=== PATIENT | male | born 1975 | race Caucasian/White ===

== ENCOUNTER 2018-08-23 08:28 | Day surgery (SDC) | payer BC, OTHER ==
[~2018-08-23 08:28] MED LIST: Glycopyrrolate 0.2 MG/ML SDV ONE; Lactated Ringers 1,000 ML IV SCH; Lidocaine 2% 5 ML SDV ONE; Midazolam 1 MG/ML 2 ML SDV ONE; Propofol 200 MG/20 ML SDV ONE
[2018-08-23] MEDS ORDERED: Bupivacaine 0.5% 30 ML SDV ONE (08:58)
[2018-08-23] MEDS ORDERED: Lidocaine 1% 20 ML MDV ONE (08:58)
--- NOTE | 2018-08-23 10:05 | PCM.PREANE ---
Preanesthetic Assessment - Anesthesia/Transfusion/Family Hx Anesthesia History: Prior Anesthesia Without Reaction Family History of Anesthesia Reaction: No Transfusion History: No Prior Transfusion(s) Intubation History: Unknown - Review of Systems General: No Symptoms Pulmonary: No Symptoms Cardiovascular: No Symptoms Gastrointestinal: No Symptoms Neurological: No Symptoms Other: Reports: None - Physical Assessment O2 Sat by Pulse Oximetry: 97 Respiratory Rate: 16 Vital Signs: Last Vital Signs Temp 36.6 C 08/23/18 09:46 Pulse 52 L 08/23/18 09:46 Resp 16 08/23/18 09:46 BP 121/66 08/23/18 09:46 Pulse Ox 97 08/23/18 09:46 Height: 5 ft 6 in Weight: 102.058 kg ASA Class: 2 Mental Status: Alert & Oriented x3 Airway Class: Mallampati = 2 Dentition: Reports: Normal Dentition Thyro-Mental Finger Breadths: 3 Mouth Opening Finger Breadths: 3 ROM/Head Extension: Full Lungs: Clear to Auscultation, Normal Respiratory Effort Cardiovascular: Regular Rate, Regular Rhythm - Allergies Allergies/Adverse Reactions: Allergies Allergy/AdvReac Type Severity Reaction Status Date / Time No Known Allergies Allergy Verified 08/21/18 16:20 - Blood Blood Available: No - Anesthesia Plan Pre-Op Medication Ordered: None - Acknowledgements Anesthesia Type Planned: General Anesthesia Pt an Appropriate Candidate for the Planned Anesthesia: Yes Alternatives and Risks of Anesthesia Discussed w Pt/Guardian: Yes Pt/Guardian Understands and Agrees with Anesthesia Plan: Yes PreAnesthesia Questionnaire - Past Health History Medical/Surgical History: Denies Medical/Surgical History HEENT History: Reports: Other (See Below) Other HEENT History: wears glasses Musculoskeletal History: Reports: Fracture Other Musculoskeletal History: hx of fx left knee Endocrine/Metabolic History: Reports: Obesity/BMI 30+ - Past Surgical History Head Surgeries/Procedures: Reports: None Musculoskeletal Surgical History: Reports: ORIF Other Musculoskeletal Surgeries/Procedures:: ORIF left knee- has hardware - SUBSTANCE USE Smoking Status *Q: Never Smoker Recreational Drug Use History: No - HOME MEDS Home Medications: Home Meds . [No Known Home Meds] 06/25/15 [History] - CURRENT (IN HOUSE) MEDS Current Meds: Current Medications Lactated Ringer's (Ringers, Lactated) 1,000 mls @ 125 mls/hr IV ASDIRECTED JACKIE Last Admin: 08/23/18 09:45 Dose: 125 mls/hr Discontinued Medications Bupivacaine HCl (Marcaine 0.5%) Confirm Administered Dose 30 ml .ROUTE .STK-MED ONE Stop: 08/23/18 08:59 Glycopyrrolate (Robinul) Confirm Administered Dose 0.2 mg .ROUTE .STK-MED ONE Stop: 08/23/18 08:18 Lidocaine (Xylocaine-Mpf 2%) Confirm Administered Dose 5 ml .ROUTE .STK-MED ONE Stop: 08/23/18 08:18 Lidocaine HCl (Xylocaine 1%) Confirm Administered Dose 20 ml .ROUTE .STK-MED ONE Stop: 08/23/18 08:59 Midazolam HCl (Versed 1 Mg/Ml) Confirm Administered Dose 2 mg .ROUTE .STK-MED ONE Stop: 08/23/18 08:20 Propofol (Diprivan 20 Ml) Confirm Administered Dose 200 mg .ROUTE .STK-MED ONE Stop: 08/23/18 08:20 Propofol (Diprivan 20 Ml) Confirm Administered Dose 200 mg .ROUTE .STK-MED ONE Stop: 08/23/18 08:21
[2018-08-23] MEDS ORDERED: Acetaminophen/HYDROcodone 325-5 MG Tab PO PRN (11:10)
--- NOTE | 2018-08-23 11:12 | PCM.OPNOTE ---
- General Post-Op/Procedure Note Date of Surgery/Procedure: 08/23/18 Operative Procedure(s): Excision right forearm lipoma 4 Pre Op Diagnosis: Enlarging right forearm masses. History of lipoma. Post-Op Diagnosis: Same Anesthesia Technique: Local, MAC (ASA I) Primary Surgeon: Jose Elias Carvajal Fluid Replacement, Intraop: 600 EBL in mLs: 10 Condition: Good Free Text/Narrative:: DICTATION [id number] CPT code 77267-00, total of 4 lipomas.
[2018-08-23] MEDS ORDERED: Lactated Ringers 1,000 ML IV SCH (11:15)
--- NOTE | 2018-08-23 11:16 | PCM.POSTAN ---
POST ANESTHESIA ASSESSMENT - MENTAL STATUS Mental Status: Alert, Oriented - RESPIRATORY Respiratory Status: Respiratory Rate WNL, Airway Patent, O2 Saturation Stable - CARDIOVASCULAR CV Status: Pulse Rate WNL, Blood Pressure Stable - GASTROINTESTINAL GI Status: No Symptoms - PAIN Pain Score: 0 - POST OP HYDRATION Hydration Status: Adequate & Stable - OBSERVATIONS Free Text/Narrative:: No anesthesia problems,patient skipped recovery room stage of postoperative care
[2018-08-23 13:15] VITALS: BP 116/81
--- NOTE | 2018-08-23 14:59 | OR ---
SURGEON: Jose Elias Carvajal M.D. DATE OF PROCEDURE: 08/23/2018 OPERATION PERFORMED: Excision of multiple lipomas, right forearm. A total of four lipomas ranging in size from 1.1 cm to 2.1 cm were removed. ANESTHESIA: Local MAC. ASA CLASSIFICATION: I. PREOPERATIVE DIAGNOSIS: Multiple enlarging lipomas, right forearm. POSTOPERATIVE DIAGNOSIS: Multiple enlarging lipomas, right forearm. ESTIMATED BLOOD LOSS: 10 mL. INTRAOPERATIVE FLUID REPLACEMENT: 600 mL of crystalloid. DESCRIPTION OF PROCEDURE: The patient was taken to the operating room, placed on the operating table in the supine position. Time-out was called for appropriate identification of the patient and procedure. Surgical sites had all been marked prior to the patient entering the operating room. The right upper extremity was prepped with DuraPrep solution. Sterile drapes were applied. As the skin incisions had been marked out, these were serially infiltrated with 1% Xylocaine and 0.5% Marcaine solution. The first incision was in the distal right forearm over the mass in question. Skin incision was made and deepened into the subcutaneous tissue with electrocautery. Hemostasis was obtained with electrocautery. Once dissection was carried down to the lipoma, this was able to be shelled out. Bleeding sites were electrocoagulated. Our attention was then turned to the next mass, which was slightly proximal and medial. Again, with the wound already infiltrated with 1% Xylocaine and 0.5% Marcaine, skin incision was made and again deepened down to the subcutaneous mass, which was shelled out. Again, bleeding sites were electrocoagulated. Two more lesions were identified, one in the anterior right antebrachial space and the next one slightly inferior to that. Again, both incisions had been infiltrated with local anesthetic. Skin incisions were serially made over each lipoma, which were removed with a combination of electrocautery and blunt dissection. Wounds were inspected for hemostasis and bleeding sites were electrocoagulated. Each incision was closed with subcuticular 4-0 Monocryl, reinforced with Steri-Strips. Total length of the incisions would be 7 cm. After the wounds were closed, the incisions were Steri- Stripped and dressed with sterile Tegaderm pads. Sponge, needle, and instrument counts were all correct. Each mass was individually labeled and sent in for separate histologic analysis. The patient tolerated the procedure well and was taken to recovery room in stable condition. ANDEWAY / BELLA /[id number]
== END 2018-08-23 11:50 | disposition home or self-care (01) ==
LOC: MW.SDS 08:28
PROVIDERS: ATTEND Surgery
DX: D17.21 Benign lipomatous neoplasm of skin and subcutaneous tissue of right arm (principal); R22.32 Localized swelling, mass and lump, left upper limb; Z86.018 Personal history of other benign neoplasm
CPT/HCPCS: 25075; J2001; J2250; J2704; J3490; J7120; 00400